=== PATIENT | male | born 1980 | race Caucasian/White ===

== ENCOUNTER 2016-12-19 08:04 | Emergency (ER) | payer BC ==
[~2016-12-19] VITALS: Ht 177.8 cm; Wt 93.6 kg
[~2016-12-19 08:04] MED LIST: NO HOME MEDICATIONS; NORCO 325 MG-51 TAB PO
[2016-12-19] MEDS ORDERED: ATIVAN 0.50.5 MG/TAB PO (08:17)
[2016-12-19 08:27] LABS: BASO # 0.1 (0.0-0.2); BASO % 0.6 % (0.0-2.0); EOS # 0.1 (0.0-0.7); EOS % 1.6 % (0-4.0); GRAN % 48.6 % (42.2-75.2); HEMATOCRIT 46.5 % (42.0-52.0); HEMOGLOBIN 16.3 g/dl (13.5-18.0); LYMPH # 3.5 (1.2-3.4); LYMPH % 42.5 % (20.0-51.0); MEAN CELL VOLUME 87 fl (80.0-100.0); MEAN CORPUSCULAR HEMOGLOBIN 31 pg (27.0-31.0); MEAN CORPUSCULAR HGB CONC 35 g/dl (33.0-37.0); MEAN PLATELET VOLUME 9.7 fl (7.4-10.4); MONO # 0.5 (0.1-0.6); MONO % 6.3 % (1.7-9.3); PLATELET COUNT 256 K/mm3 (130-400); RED BLOOD COUNT 5.33 M/mm3 (4.20-5.60); REDCELL DISTRIBUTION WIDTH-CV 11.9 % (11.5-14.5); WHITE BLOOD COUNT 8.1 K/mm3 (4.8-10.8)
[2016-12-19 08:40] LABS: ADJUSTED CALCIUM 9.3 mg/dL (8.4-10.2); ALANINE AMINOTRANSFERASE 29 U/L (21-72); ALBUMIN 4.8 gm/dL (3.5-5.0); ALKALINE PHOSPHATASE 97 U/L (50-136); ANION GAP 21 mmol/L (7-16); BILIRUBIN,TOTAL 1.2 mg/dL (0.0-1.0); BLOOD UREA NITROGEN 18 mg/dL (9-20); CALCIUM 9.9 mg/dL (8.4-10.2); CARBON DIOXIDE 20 mmol/L (22-30); CHLORIDE 102 mmol/L (98-107); CREATININE, serum 1.04 mg/dL (0.66-1.25); GLUCOSE 123 mg/dL (74-106); POTASSIUM 3.2 mmol/L (3.4-5.0); SODIUM 142 mmol/L (137-145); TOTAL PROTEIN 8.5 gm/dL (6.4-8.2)
[2016-12-19 08:41] LABS: C-REACTIVE PROTEIN < 0.5 mg/dL (0.0-0.9)
[2016-12-19 08:52] LABS: TROPONIN-I < 0.012 ng/mL (0.000-0.034)
[2016-12-19 11:35] VITALS: BP 124/86; PULSE 84; TEMP 98.2
== END 2016-12-19 10:36 | disposition home or self-care (01) ==
LOC: COL.ER 08:04
PROVIDERS: Family Medicine
DX: R07.9 Chest pain, unspecified (principal); F41.9 Anxiety disorder, unspecified; R00.0 Tachycardia, unspecified
CPT/HCPCS: J2060; J7030

== ENCOUNTER 2019-09-09 11:46 | Day surgery (SDC) | payer BC ==
[~2019-09-09] VITALS: Ht 180.3 cm; Wt 90.9 kg
[~2019-09-09 11:46] MED LIST changes: +ATIVAN 0.50.5 MG/TAB PO
[2019-09-09 12:47] VITALS: BP 124/93; PULSE 102; TEMP 98.2
--- NOTE | 2019-09-09 13:00 | NUR ---
Patient is resting on cart and awaits surgery.
--- NOTE | 2019-09-09 14:15 | NUR ---
Patient assisted up to the bathroom and is able to void and returns to room.
[2019-09-09 15:57] VITALS: TEMP 98.4
[2019-09-09] MEDS ORDERED: NORCO 325 MG-51 TAB PO (16:00)
[2019-09-09 16:05] VITALS: BP 120/81; PULSE 84
--- NOTE | 2019-09-09 16:05 | NUR ---
Patient returns to room 2 per cart from PACU accompanied by Jesi FRANKLIN and is awake and alert. Manzano catheter to leg with pale yellow urine. IV fluids infusing and site is free of redness. Spouse in room. Call light in reach and siderails up x2. Denies pain. Drinking water and eating applesauce.
[2019-09-09 16:20] VITALS: BP 123/88; PULSE 89
--- NOTE | 2019-09-09 16:20 | NUR ---
IV discontinued and patient given dismissal instructions. Provided large dependent drainage bag, alcohol wipes, and extra tape if needed. Instructed to use leg bag during the day and dependent drainage at night. Instructed to follow up in the office at 0800 for barrera catheter removal on 09/11/19. Provided script for [place].
--- NOTE | 2019-09-09 16:35 | NUR ---
Patient dismissed to home per private vehicle driven by spouse and taken to the front door per wheelchair with all belongings and assisted into car by Zahra FRANKLIN.
== END 2019-09-09 16:35 | disposition home or self-care (01) ==
LOC: SDCO 11:46
DX: N35.919 Unspecified urethral stricture, male, unspecified site (principal)
CPT/HCPCS: J0690; J2270; J2704; J3010; J7120

== ENCOUNTER 2019-11-24 10:59 | Emergency (ER) | payer BC ==
[~2019-11-24] VITALS: Ht 180.3 cm; Wt 90.9 kg
[2019-11-24 11:19] VITALS: TEMP 99
[2019-11-24 12:38] LABS: BASO # 0.1 (0.0-0.2); BASO % 1.6 % (0.0-2.0); EOS % 0.3 % (0-4.0); GRAN # 1.6 (1.4-6.5); GRAN % 44.2 % (42.2-75.2); HEMATOCRIT 41.2 % (42.0-52.0); HEMOGLOBIN 15.2 g/dl (13.5-18.0); LYMPH # 1.6 (1.2-3.4); LYMPH % 43.8 % (20.0-51.0); MEAN CELL VOLUME 98 fl (80.0-100.0); MEAN CORPUSCULAR HEMOGLOBIN 36 pg (27.0-31.0); MEAN CORPUSCULAR HGB CONC 37 g/dl (33.0-37.0); MEAN PLATELET VOLUME 9.5 fl (7.4-10.4); MONO # 0.4 (0.1-0.6); MONO % 10.1 % (1.7-9.3); PLATELET COUNT 236 K/mm3 (130-400); RED BLOOD COUNT 4.22 M/mm3 (4.20-5.60); REDCELL DISTRIBUTION WIDTH-CV 12.1 % (11.5-14.5)
[2019-11-24 13:03] LABS: ALANINE AMINOTRANSFERASE 159 U/L (21-72); ALBUMIN 4.4 gm/dL (3.5-5.0); ALKALINE PHOSPHATASE 106 U/L (50-136); ANION GAP 16 mmol/L (7-16); AST,SGOT 302 U/L (15-37); BILIRUBIN,TOTAL 1.1 mg/dL (0.0-1.0); BLOOD UREA NITROGEN 22 mg/dL (9-20); CALCIUM 9.3 mg/dL (8.4-10.2); CARBON DIOXIDE 15 mmol/L (22-30); CHLORIDE 107 mmol/L (98-107); CREATININE, serum 0.92 (0.66-1.25); GLUCOSE 103 mg/dL (74-106); SODIUM 138 mmol/L (137-145); TOTAL PROTEIN 7.8 gm/dL (6.4-8.2)
[2019-11-24 13:30] LABS: TROPONIN-I < 0.012 ng/mL (0.000-0.035)
[2019-11-24 14:55] VITALS: BP 133/95; PULSE 97
== END 2019-11-24 15:18 | disposition home or self-care (01) ==
LOC: COL.ER 10:59
PROVIDERS: Physician Assistant
DX: R00.0 Tachycardia, unspecified (principal); Z86.79 Personal history of other diseases of the circulatory system
CPT/HCPCS: J7030

== ENCOUNTER 2020-05-30 12:35 | Emergency (ER) | payer BC ==
[~2020-05-30] VITALS: Ht 177.8 cm; Wt 81.8 kg
[2020-05-30 12:44] VITALS: TEMP 98.6
[2020-05-30 13:44] LABS: BASO % 0.7 % (0.0-2.0); EOS % 0.2 % (0-4.0); GRAN % 65.8 % (42.2-75.2); HEMOGLOBIN 11.8 g/dl (13.5-18.0); MEAN CELL VOLUME 99 fl (80.0-100.0); MEAN CORPUSCULAR HEMOGLOBIN 36 pg (27.0-31.0); MEAN CORPUSCULAR HGB CONC 36 g/dl (33.0-37.0); MEAN PLATELET VOLUME 9.3 fl (7.4-10.4); MONO # 0.4 (0.1-0.6); MONO % 9.6 % (1.7-9.3); PLATELET COUNT 186 K/mm3 (130-400); RED BLOOD COUNT 3.32 M/mm3 (4.20-5.60); REDCELL DISTRIBUTION WIDTH-CV 14.6 % (11.5-14.5)
[2020-05-30 13:46] LABS: HEMATOCRIT 32.8 % (42.0-52.0)
[2020-05-30 13:50] LABS: INR 1.1 (0.8-3.0); PROTHROMBIN TIME 12.5 SECONDS (9.7-12.8)
[2020-05-30 13:53] LABS: PARTIAL THROMBOPLASTIN TIME 31.7 SECONDS (26.0-37.0)
[2020-05-30 13:56] LABS: ALBUMIN 4.6 gm/dL (3.5-5.0); BILIRUBIN,TOTAL 1.3 mg/dL (0.0-1.0); CALCIUM 9.3 mg/dL (8.4-10.2); CREATININE, serum 0.6 (0.66-1.25); POTASSIUM 3.6 mmol/L (3.4-5.0); TOTAL PROTEIN 7.6 gm/dL (6.4-8.2)
[2020-05-30 14:02] LABS: ALCOHOL(ethanol),MEDICAL < 10 mg/dL
[2020-05-30 14:07] LABS: TROPONIN-I < 0.012 ng/mL (0.000-0.035)
[2020-05-30 15:54] VITALS: BP 135/94; PULSE 114
== END 2020-05-30 15:54 | disposition home or self-care (01) ==
LOC: COL.ER 12:35
PROVIDERS: Family Medicine
DX: R07.9 Chest pain, unspecified (principal); E86.0 Dehydration
CPT/HCPCS: J2060; J7030; J7120